=== PATIENT | female | born 1940 | race Two or more races ===

== ENCOUNTER 2020-12-20 10:07 | Emergency (ER) | payer OTHER ==
[~2020-12-20] VITALS: Ht 160 cm; Wt 59.0 kg
[2020-12-20] MEDS ORDERED: ULTRAM50 MG (10:18)
[2020-12-20] MEDS ORDERED: NEURONTIN300 MG (10:18)
[2020-12-20] MEDS ORDERED: XANAX XR0.5 MG (10:18)
[2020-12-20] MEDS ORDERED: ANUSOL-HC30 G2 (10:20)
[2020-12-20] MEDS ORDERED: PLAQUENIL (10:20)
== END 2020-12-20 15:30 | disposition home or self-care (01) ==
LOC: ER 10:07
DX: S70.01XA Contusion of right hip, initial encounter (principal); S40.011A Contusion of right shoulder, initial encounter; W18.39XA Other fall on same level, initial encounter; Y93.89 Activity, other specified; Y92.89 Other specified places as the place of occurrence of the external cause; Y99.8 Other external cause status; N39.0 Urinary tract infection, site not specified; Z11.52 Encounter for screening for COVID-19

== ENCOUNTER 2021-04-20 15:39 | Inpatient (IN) | payer OTHER ==
[~2021-04-20] VITALS: Ht 160 cm; Wt 58.5 kg
[~2021-04-20 15:39] MED LIST: ANUSOL-HC30 G2; NEURONTIN300 MG; PLAQUENIL; ULTRAM50 MG; XANAX XR0.5 MG
[2021-04-20] MEDS ORDERED: AVAPRO150 MG PO (15:45)
[2021-04-20] MEDS ORDERED: AMLODIPINE-OLM1 EACH PO (15:46)
[2021-04-21] MEDS ORDERED: HYDROXYCHLOROQ200 MG (13:11)
[2021-04-21] MEDS ORDERED: FLUOXETINE HCL10 MG (13:12)
[2021-04-21] MEDS ORDERED: NITROFURANTOIN100 M1 (13:12)
[2021-04-21] MEDS ORDERED: LIDOCAINE1 EACH (13:13)
[2021-04-21] MEDS ORDERED: DEXILANT60 MG (13:13)
[2021-04-21] MEDS ORDERED: AMLODIPINE BESYL5 MG (13:13)
[2021-04-21] MEDS ORDERED: MESALAMINE800 MG (13:14)
[2021-04-21] MEDS ORDERED: ORPHENADRI30 MG/1 M1 (13:14)
[2021-04-21] MEDS ORDERED: ENDOCET 5-3251 EACH (13:14)
[2021-04-21] MEDS ORDERED: ONDANSETRON HCL4 MG (13:15)
[2021-04-21] MEDS ORDERED: LEVOTHYROXINE75 MCG (13:15)
[2021-04-21] MEDS ORDERED: HYOSCYAMINE0.125 M1 (13:15)
[2021-04-21] MEDS ORDERED: NABUMETONE750 MG (13:16)
[2021-04-21] MEDS ORDERED: ALLERGY RELIEF10 MG (13:16)
[2021-04-21] MEDS ORDERED: 8HR ARTHRITIS650 M1 (13:16)
[2021-04-21] MEDS ORDERED: TIMOLOL MALEATE5 M4 (13:16)
== END 2021-04-23 14:07 | disposition home or self-care (01) | DRG 812 ==
LOC: ER 15:39 → MEDI 04-21 10:50 → MEDJ 04-21 10:50 → MEDI 04-21 16:59
PROVIDERS: ADMIT Specialist; ATTEND Specialist
PROC: 30233N1 Transfusion of Nonautologous Red Blood Cells into Peripheral Vein, Percutaneous Approach (ICD-10-PCS; principal; 2021-04-21)
DX: D64.9 Anemia, unspecified (principal); Z20.822 Contact with and (suspected) exposure to COVID-19; M06.9 Rheumatoid arthritis, unspecified; E03.8 Other specified hypothyroidism; E87.6 Hypokalemia